=== PATIENT | female | born 1970 | race Caucasian/White ===

== ENCOUNTER 2017-11-07 14:49 | Emergency (ER) | payer OTHER, SELFPAY ==
--- NOTE | 2017-11-07 12:29 | PC.NURSE ---
left upper abdominal pain for one month, evaluated by her primary md yesterday, given rx ranitidine. ems vs 115/75 hr 64 sat 100% ra, 98.1 temp. ekg wnl. denies fever,vomiting, blood in stool, denies injuries. spouse just from suicide.
[2017-11-07 15:15] VITALS: BP 133/66; PULSE 70; RESP 16; TEMP 36.9; O2SAT 100; BMI 20.2
--- NOTE | 2017-11-07 16:01 | PC.NURSE ---
hx of breast cancer 2007 with biteral mastectomy, last chemo 2008 pt developed left upper abdominal pain for one month,non radiating, now worsen. 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
[2017-11-07 16:03] VITALS: BP 111/65; PULSE 63; RESP 16; O2SAT 100
--- NOTE | 2017-11-07 16:13 | PC.NURSE ---
urine requested, ambulate with steady gait.
[2017-11-07 16:19] LABS: Add Manual Diff / Slide Review NO; Basophils Percent Auto 0.4 % (0-2); Eosinophils Percent Auto 1.7 % (2-4); Hematocrit 29.8 % (36-46); Hemoglobin 9.7 g/dL (12.0-16.0); Lymphocytes Percent Auto 26.5 % (25-40); Mean Corpuscular HGB Conc 32.4 % (30-36); Monocytes Percent Auto 6.8 % (3-14); Neutrophils Absolute Auto 2900 /uL (3000-5900); Neutrophils Percent Auto 64.6 % (50-75); Platelet Count 252 X10^3/uL (150-400); Red Blood Cell Count 3.72 X10^6/uL (4.0-5.2); Red Cell Distribution Width 20.5 % (11.6-14.8); White Blood Cell Count 4.5 X10^3/uL (4.5-11.0)
[2017-11-07 16:30] LABS: Alanine Aminotransferase 24 IU/L (9-52); Albumin 4.6 g/dL (3.5-5.0); Albumin Globulin Ratio 1.7 (1.0-2.8); Alkaline Phosphatase 51 U/L (38-126); Aspartate Aminotransferase 21 IU/L (14-36); BUN Creatinine Ratio 22.5 (6-22); Bilirubin Total 0.4 mg/dL (0.2-1.3); Calcium 9.7 mg/dL (8.4-10.2); Estimated Glomerular Filt Rate > 60.0 mL/min (>60); Globulin 2.7 g/dL (1.7-4.1); Glucose 80 mg/dL (70-100); HEMOLYSIS < 15 (0-50); Lipase 81 U/L (23-300); Potassium 3.7 mmol/L (3.4-5.1); Sodium 139 mmol/L (137-145); Total Protein 7.3 g/dL (6.3-8.2)
--- NOTE | 2017-11-07 16:30 | ED.ABDPAIN ---
HPI - Abdominal Pain <MUMTAZ Garcia - Last Filed: 11/07/17 21:32> General Chief Complaint: Abdominal Pain Stated Complaint: left upper abdominal pain Time Seen by Provider: 11/07/17 16:50 History of Present Illness HPI narrative: 47-year-old female with prior history of breast cancer here for complaint of epigastric pain and left upper quadrant pain for the last few weeks. She denies any trauma to the area. She states that the pain is intermittent she states that eating makes it worse at times. Positive p.o. intake last intake was this morning and she was able to keep down. No nausea or vomiting. She denies any urinary symptoms. Last bowel movement was yesterday and was unremarkable. No fevers no chills. She denies any other concerns or complaints Related Data Home Medications Medication Instructions Recorded Confirmed ranitidine HCl 150 mg PO BID 11/07/17 11/07/17 Allergies Allergy/AdvReac Type Severity Reaction Status Date / Time No Known Drug Allergies Allergy Verified 11/07/17 15:20 Review of Systems <MUMTAZ Garcia - Last Filed: 11/07/17 21:32> Constitutional Denies chills, Denies fever(s), Denies lethargy and Denies weakness ENT Ears, Nose, Mouth, and Throat: Denies change in voice, Denies neck pain and Denies sore throat Gastrointestinal Gastrointestinal: Reports abdominal pain Genitourinary Denies hematuria, Denies flank pain, Denies urinary incontinence and Denies urinary urgency Musculoskeletal Denies neck pain Neurologic Denies confusion and Denies weakness Psychiatric Denies anxiety, Denies confusion, Denies depression, Denies homicidal ideation and Denies suicidal ideation Exam <MUMTAZ Garcia - Last Filed: 11/07/17 21:32> Initial Vital Signs Initial Vital Signs: Vital Signs Temperature 98.4 F 11/07/17 15:15 Pulse Rate 70 11/07/17 15:15 Respiratory Rate 16 11/07/17 15:15 Blood Pressure 133/66 H 11/07/17 15:15 Pulse Oximetry 100 11/07/17 15:15 Const General: cooperative and well developed Nutritional Appearance: well nourished Orientation: alert, awake, oriented x3 and not confused HENMT Mouth: oral mucosae normal, oropharynx normal and moist mucous membranes Eyes General: appearance normal, both eyes and all related structures Eyelids: eyelids normal Conjunctivae: conjunctivae normal Sclera: sclerae normal Pupils: PERRL EOM: EOM intact bilaterally Resp Effort & Inspection: normal respiratory effort, able to speak in complete sentences, no respiratory distress and no use of accessory muscles Auscultation: clear to auscultation bilaterally, no rales, no rhonchi and no wheezes Cardio Rate: regular rate Rhythm: regular rhythm Heart Sounds: S1 normal, S2 normal, no click, no gallops, no murmurs and no rubs GI Inspection: normal to inspection Palpation: soft, No hernia, No mass, No pulsatile mass and No tender Auscultation: normal bowel sounds General: No CVA tenderness Skin General: no rashes or lesions noted, No jaundice and No petechiae Neuro General: alert, oriented x3, gait normal and no focal motor deficits Speech: speech normal <Nabeel Boles DO - Last Filed: 11/07/17 22:04> Initial Vital Signs Initial Vital Signs: Vital Signs Temperature 98.4 F 11/07/17 15:15 Pulse Rate 70 11/07/17 15:15 Respiratory Rate 16 11/07/17 15:15 Blood Pressure 133/66 H 11/07/17 15:15 Pulse Oximetry 100 11/07/17 15:15 Course <MUMTAZ Garcia - Last Filed: 11/07/17 21:32> Orders Ordered: ED Orders 11/07/17 16:15 Complete Blood Count AUTO DIFF Stat Comprehensive Metabolic Panel Stat Lipase Stat 11/07/17 16:53 Urine Microscopic Stat 11/07/17 16:57 CT abdomen pelvis w con Stat Discontinued Medications Hydromorphone HCl (Dilaudid) 0.5 mg IV NOW ONE Stop: 11/07/17 18:32 Last Admin: 11/07/17 18:34 Dose: 0.5 mg Sodium Chloride (Normal Saline 0.9%) 1,000 mls @ 150 mls/hr IV CONT TORSTEN Last Infusion: 11/07/17 19:36 Dose: 0 mls/hr Infusion: 11/07/17 18:25 Dose: 150 mls/hr Infusion: 11/07/17 17:57 Dose: 0 mls/hr Admin: 11/07/17 17:17 Dose: 150 mls/hr Vital Signs - 8 hr 05/23/18 15:15 11/07/17 16:03 11/07/17 17:51 Temperature 98.4 F Pulse Rate 70 63 77 Respiratory Rate 16 16 12 Blood Pressure 133/66 H Blood Pressure [Left Arm] 111/65 124/52 H Pulse Oximetry 100 100 100 11/07/17 19:00 Temperature Pulse Rate 56 L Respiratory Rate Blood Pressure Blood Pressure [Left Arm] 124/82 H Pulse Oximetry 100 <Nabeel Boles DO - Last Filed: 11/07/17 22:04> Orders Ordered: ED Orders 11/07/17 16:15 Complete Blood Count AUTO DIFF Stat Comprehensive Metabolic Panel Stat Lipase Stat 11/07/17 16:53 Urine Microscopic Stat 11/07/17 16:57 CT abdomen pelvis w con Stat Discontinued Medications Hydromorphone HCl (Dilaudid) 0.5 mg IV NOW ONE Stop: 11/07/17 18:32 Last Admin: 11/07/17 18:34 Dose: 0.5 mg Sodium Chloride (Normal Saline 0.9%) 1,000 mls @ 150 mls/hr IV CONT TORSTEN Last Infusion: 11/07/17 19:36 Dose: 0 mls/hr Infusion: 11/07/17 18:25 Dose: 150 mls/hr Infusion: 11/07/17 17:57 Dose: 0 mls/hr Admin: 11/07/17 17:17 Dose: 150 mls/hr Vital Signs - 8 hr 11/07/17 15:15 11/07/17 16:03 11/07/17 17:51 Temperature 98.4 F Pulse Rate 70 63 77 Respiratory Rate 16 16 12 Blood Pressure 133/66 H Blood Pressure [Left Arm] 111/65 124/52 H Pulse Oximetry 100 100 100 11/07/17 19:00 Temperature Pulse Rate 56 L Respiratory Rate Blood Pressure Blood Pressure [Left Arm] 124/82 H Pulse Oximetry 100 MDM - Abdominal Pain <MUMTAZ Garcia - Last Filed: 11/07/17 21:32> Lab Data Result diagrams: 11/07/17 16:15 11/07/17 16:15 Lab Results 11/07/17 11/07/17 11/07/17 Range/Units 16:15 16:15 16:53 WBC 4.5 (4.5-11.0) X10^3/uL RBC 3.72 L (4.0-5.2) X10^6/uL Hgb 9.7 L (12.0-16.0) g/dL Hct 29.8 L (36-46) % MCV 80.0 (80-100) fL MCH 26.0 (26-34) PG MCHC 32.4 (30-36) % RDW 20.5 H (11.6-14.8) % Plt Count 252 (150-400) X10^3/uL Neut % (Auto) 64.6 (50-75) % Lymph % (Auto) 26.5 (25-40) % Monroe % (Auto) 6.8 (3-14) % Eos % (Auto) 1.7 L (2-4) % Baso % (Auto) 0.4 (0-2) % Neut # (Auto) 2900 L (3461-7862) /uL RBC Morphology Not Reportable Hypochromasia 1+ H Anisocytosis 1+ H Microcytosis 1+ H Sodium 139 (137-145) mmol/L Potassium 3.7 (3.4-5.1) mmol/L Chloride 101.0 (98-107) mmol/L Carbon Dioxide 25.0 (22-32) mmol/L BUN 18.0 H (7-17) mg/dL Creatinine 0.80 (0.52-1.04) mg/dL Estimated GFR > 60.0 (>60) mL/min BUN/Creatinine Ratio 22.5 H (6-22) Glucose 80 (70-100) mg/dL Calcium 9.7 (8.4-10.2) mg/dL Total Bilirubin 0.4 (0.2-1.3) mg/dL AST 21 (14-36) IU/L ALT 24 (9-52) IU/L Alkaline Phosphatase 51 (38-126) U/L Total Protein 7.3 (6.3-8.2) g/dL Albumin 4.6 (3.5-5.0) g/dL Globulin 2.7 (1.7-4.1) g/dL Albumin/Globulin Ratio 1.7 (1.0-2.8) Lipase 81 (23-300) U/L Urine RBC 1-5/hpf (0-5/HPF) Urine WBC None seen (0-5/HPF) Urine Bacteria None seen (None) Ur Culture Indicated? Cult not indicated Micro UA Comment Not Reportable Imaging Data CT scan - abdomen: Radiologist's impression: PROCEDURE: CT ABDOMEN PELVIS W CON INDICATIONS: Left upper quadrant and epigastric pain TECHNIQUE: After the administration of oral and intravenous contrast, 5 mm thick sections acquired from the diaphragms to the symphysis. 5 mm thick coronal and sagittal reformats were performed. For radiation dose reduction, the following was used: automated exposure control, adjustment of mA and/or kV according to patient size. COMPARISON: None. FINDINGS: Image quality: Excellent. ABDOMEN: Lung bases: Lung bases are clear. Heart size is normal. Solid organs: There is mild focal fatty infiltration within the anterior left hepatic lobe. Small ovoid hypodensity within the left hepatic lobe is too small to characterize but likely represents a cyst. Gallbladder is within normal limits without calcified gallstones. Biliary system is non-dilated. Pancreas enhances normally. Spleen is normal in size and enhancement. No adrenal nodules. Kidneys are normal in size and enhancement, without hydronephrosis. Peritoneum and bowel: There is prominent concentric wall thickening of the pylorus. Mild to moderate fluid and gas distention of the stomach is noted. Small bowel loops are normal in caliber and wall thickness. No evidence of appendicitis. There is colonic diverticulosis without acute diverticulitis. There is suggestion of slight segmental wall thickening in the distal sigmoid colon although this can be due to nondistention. A small amount of free fluid is demonstrated within the pelvis which appears within physiologic limits. No free air. Nodes and vessels: No retroperitoneal or mesenteric adenopathy. Aorta and inferior vena cava are normal in caliber. Miscellaneous: No ventral hernias. PELVIS: Genitourinary: Bladder wall thickness is normal. There is hyperemia of the uterus consistent with physiologic changes. Miscellaneous: No inguinal hernias or adenopathy. Bones: No suspicious bony lesions. No vertebral body compression fractures. IMPRESSION: 1. Symmetric gastric wall thickening in the region of the pylorus of indeterminate clinical significance. There is [id number] gastric distention. Recommend clinical correlation for possible gastric outlet obstruction symptoms. 2. Diverticulosis without acute diverticulitis. Dictated by: Raúl Evans M.D. on 11/07/2017 at 18:33 Approved by: Raúl Evans M.D. on 11/07/2017 at 18:39 MDM Narrative Medical decision making narrative: CBC and Chem panel were obtained and shows anemia otherwise is unremarkable. CT of the abdomen was obtained and shows some swelling around the pyloric region. Patient has not had nausea or vomiting so doubtful is outlet syndrome. Concerned for ulceration. She is prescribed Nexium however patient decided she would rather do [id number] Nexium. She is to follow up with primary care provider in the next few days for further evaluation and treatment. Discussed with patient to have further evaluation such as endoscopy. For any worsening symptoms return to the emergency room. <Nabeel Boles DO - Last Filed: 11/07/17 22:04> Lab Data Lab Results 11/07/17 11/07/17 11/07/17 Range/Units 16:15 16:15 16:53 WBC 4.5 (4.5-11.0) X10^3/uL RBC 3.72 L (4.0-5.2) X10^6/uL Hgb 9.7 L (12.0-16.0) g/dL Hct 29.8 L (36-46) % MCV 80.0 (80-100) fL MCH 26.0 (26-34) PG MCHC 32.4 (30-36) % RDW 20.5 H (11.6-14.8) % Plt Count 252 (150-400) X10^3/uL Neut % (Auto) 64.6 (50-75) % Lymph % (Auto) 26.5 (25-40) % Monroe % (Auto) 6.8 (3-14) % Eos % (Auto) 1.7 L (2-4) % Baso % (Auto) 0.4 (0-2) % Neut # (Auto) 2900 L (3834-0690) /uL RBC Morphology Not Reportable Hypochromasia 1+ H Anisocytosis 1+ H Microcytosis 1+ H Sodium 139 (137-145) mmol/L Potassium 3.7 (3.4-5.1) mmol/L Chloride 101.0 (98-107) mmol/L Carbon Dioxide 25.0 (22-32) mmol/L BUN 18.0 H (7-17) mg/dL Creatinine 0.80 (0.52-1.04) mg/dL Estimated GFR > 60.0 (>60) mL/min BUN/Creatinine Ratio 22.5 H (6-22) Glucose 80 (70-100) mg/dL Calcium 9.7 (8.4-10.2) mg/dL Total Bilirubin 0.4 (0.2-1.3) mg/dL AST 21 (14-36) IU/L ALT 24 (9-52) IU/L Alkaline Phosphatase 51 (38-126) U/L Total Protein 7.3 (6.3-8.2) g/dL Albumin 4.6 (3.5-5.0) g/dL Globulin 2.7 (1.7-4.1) g/dL Albumin/Globulin Ratio 1.7 (1.0-2.8) Lipase 81 (23-300) U/L Urine RBC 1-5/hpf (0-5/HPF) Urine WBC None seen (0-5/HPF) Urine Bacteria None seen (None) Ur Culture Indicated? Cult not indicated Micro UA Comment Not Reportable Discharge Plan Departure Patient Disposition: Home, Self-Care Clinical Impression: Abdominal pain Discharge Date/Time: 11/07/17 19:40 Interventions: ED Discharge Assessment Last Done: 11/07/17 19:39 Instructions: DI for Abdominal Pain-Adult Activity Restrictions/Additional Instructions: Laboratory results show a anemia otherwise were unremarkable. CT of the abdomen showed thickening of the stomach wall around the pyloric sphincter. Concerned this may be due to some ulceration. Use [id number] Nexium to help with any acid follow up with her primary care provider in the next few days for re-evaluation. May need endoscopy for further evaluation. For any worsening symptoms return to the emergency room. Limit NSAID use as this could irritate the gastric lining. Use Tylenol as needed for discomfort. Prescriptions: No Action ranitidine HCl 150 mg 150 mg PO BID RF: 0 Referrals: [facility] [Provider Group] <Nabeel Boles DO - Last Filed: 11/07/17 22:04> Cosign ED Attending Tracy Attestation: I was immediately available in the department for consultation. Documentation has been reviewed. I agree with assessment and plan.
[2017-11-07 16:37] LABS: Anisocytosis 1+; Hypochromasia 1+; Microcytosis 1+
--- NOTE | 2017-11-07 16:57 | DI.CT.S_ITS ---
PROCEDURE: CT ABDOMEN PELVIS W CON INDICATIONS: Left upper quadrant and epigastric pain TECHNIQUE: After the administration of oral and intravenous contrast, 5 mm thick sections acquired from the diaphragms to the symphysis. 5 mm thick coronal and sagittal reformats were performed. For radiation dose reduction, the following was used: automated exposure control, adjustment of mA and/or kV according to patient size. COMPARISON: None. FINDINGS: Image quality: Excellent. ABDOMEN: Lung bases: Lung bases are clear. Heart size is normal. Solid organs: There is mild focal fatty infiltration within the anterior left hepatic lobe. Small ovoid hypodensity within the left hepatic lobe is too small to characterize but likely represents a cyst. Gallbladder is within normal limits without calcified gallstones. Biliary system is non-dilated. Pancreas enhances normally. Spleen is normal in size and enhancement. No adrenal nodules. Kidneys are normal in size and enhancement, without hydronephrosis. Peritoneum and bowel: There is prominent concentric wall thickening of the pylorus. Mild to moderate fluid and gas distention of the stomach is noted. Small bowel loops are normal in caliber and wall thickness. No evidence of appendicitis. There is colonic diverticulosis without acute diverticulitis. There is suggestion of slight segmental wall thickening in the distal sigmoid colon although this can be due to nondistention. A small amount of free fluid is demonstrated within the pelvis which appears within physiologic limits. No free air. Nodes and vessels: No retroperitoneal or mesenteric adenopathy. Aorta and inferior vena cava are normal in caliber. Miscellaneous: No ventral hernias. PELVIS: Genitourinary: Bladder wall thickness is normal. There is hyperemia of the uterus consistent with physiologic changes. Miscellaneous: No inguinal hernias or adenopathy. Bones: No suspicious bony lesions. No vertebral body compression fractures. IMPRESSION: 1. Symmetric gastric wall thickening in the region of the pylorus of indeterminate clinical significance. There is [id number] gastric distention. Recommend clinical correlation for possible gastric outlet obstruction symptoms. 2. Diverticulosis without acute diverticulitis. Dictated by: Raúl Evans M.D. on 11/07/2017 at 18:33 Approved by: Raúl Evans M.D. on 11/07/2017 at 18:39
[2017-11-07 17:01] LABS: Bacteria Urine None Seen; WBC Urine None Seen (0-5/HPF)
[2017-11-07 17:07] LABS: Culture Indicated Urine Cult Not Indicated; RBC Urine 1-5/HPF (0-5/HPF)
[2017-11-07] MEDS: SODIUM CHLORIDE 0.9% 1,000 ML 150 ML IV (17:17)
[2017-11-07 17:51] VITALS: BP 124/52; PULSE 77; RESP 12; O2SAT 100
--- NOTE | 2017-11-07 18:25 | PC.NURSE ---
pt requesting medication, for increasing pain left upper abd. 10/25
[2017-11-07] MEDS: HYDROMORPHONE 0.5 MG INJ IV (18:34)
--- NOTE | 2017-11-07 18:58 | PC.NURSE ---
pts mother repeatedly stating they have to catch the ferry back to [place]. requesting copy of lab works.
[2017-11-07 19:00] VITALS: BP 124/82; PULSE 56; O2SAT 100
== END 2017-11-07 19:40 | disposition home or self-care (01) ==
PROVIDERS: Emergency Provider Nurse Practitioner Family; Family Provider Nurse Practitioner Family
DX: R10.9 Unspecified abdominal pain (principal)
CPT/HCPCS: 36591; 74177; 80053; 81003; 81015; 83690; 85025; 96361; 96374; 99284; J1170; Q9967

== ENCOUNTER → 2018-10-29 09:16 | Outpatient (CLI) | payer OTHER, SELFPAY ==
--- NOTE | 2018-10-29 | DI.US.S_ITS ---
PROCEDURE: US PELVIC COMPLETE INDICATIONS: ENLARGED UTERUS TECHNIQUE: Real-time scanning was performed of the pelvic organs, with image documentation. Additional endovaginal scanning was necessary due to incomplete visualization of the adnexal and endometrial structures by transabdominal scanning. COMPARISON: [facility], US, PELVIC COMPLETE, 07/12/2010, 10:10. [facility], CT, CT ABDOMEN PELVIS W CON, 11/07/2017, 17:51. [facility], US, PELVIC COMPLETE, 05/25/2016, 9:58. FINDINGS: Transabdominal scanning: Limited scanning through the kidneys shows no hydronephrosis. No pathologic free abdominal or pelvic fluid. Endovaginal scanning: Uterus: Uterus is normal in size at 11.8 x 4.9 x 7.1 cm. The endometrium measures 6 mm in combined thickness. Multiple echogenic foci are again seen along the cervix, which is similar to 2016. Ovaries: The right ovary measures 2.8 x 1.4 x 1.9 cm. The left ovary measures 2.9 x 1.6 x 1.6 cm. The ovaries have a normal sonographic appearance. No adnexal masses are seen. IMPRESSION: Prominent uterus again observed, without masses. Multiple stable echogenic foci can be seen along the cervix. Differential diagnosis includes calcification. Dictated by: Dev Quinonez M.D. on 10/29/2018 at 9:55 Approved by: Dev Quinonez M.D. on 10/29/2018 at 9:57
== END ==
PROVIDERS: PCP Family Medicine; Visit Provider Family Medicine
DX: N85.2 Hypertrophy of uterus (principal)
CPT/HCPCS: 76830; 76856

== ENCOUNTER → 2020-09-02 12:22 | Outpatient (CLI) | payer OTHER, SELFPAY ==
[2020-09-02] MEDS: COVID-19 VACC #1, MRNA(MOD) 100 MCG/0.5 ML VIAL IM (12:29)
== END ==
PROVIDERS: PCP Family Medicine; Visit Provider Internal Medicine
DX: Z23 Encounter for immunization (principal)
CPT/HCPCS: 0011A; 91301

== ENCOUNTER → 2020-09-30 09:57 | Outpatient (CLI) | payer OTHER, SELFPAY ==
[2020-09-30] MEDS: COVID-19 VACC #2, MRNA(MOD) 100 MCG/0.5 ML VIAL IM (10:03)
== END ==
PROVIDERS: PCP Family Medicine; Visit Provider Internal Medicine
DX: Z23 Encounter for immunization (principal)
CPT/HCPCS: 0012A; 91301

== ENCOUNTER → 2020-12-08 09:20 | Outpatient (CLI) | payer OTHER, SELFPAY ==
[2020-12-08 10:15] LABS: COVID19 -Nasal RAPID Negative (Negative)
== END ==
PROVIDERS: PCP Family Medicine; Visit Provider Physician Assistant
DX: Z01.812 Encounter for preprocedural laboratory examination (principal); Z20.822 Contact with and (suspected) exposure to COVID-19
CPT/HCPCS: 87635

== ENCOUNTER → 2021-03-03 09:57 | Outpatient (CLI) | payer OTHER, SELFPAY ==
[2021-03-03 19:38] LABS: Add Manual Diff / Slide Review NO; Basophils Absolute Auto 0 /uL (0-100); Basophils Percent Auto 0.5 % (0-2); Eosinophils Absolute Auto 100 /uL (0-450); Eosinophils Percent Auto 2.8 % (2-4); Hematocrit 39.5 % (36-46); Lymphocytes Absolute Auto 1400 /uL (1100-4500); Lymphocytes Percent Auto 31.8 % (25-40); Mean Corpuscular HGB Conc 32.8 % (30-36); Mean Corpuscular Volume 97.5 fL (80-100); Monocytes Absolute Auto 300 /uL (0-900); Monocytes Percent Auto 7.1 % (3-14); Neutrophils Absolute Auto 2500 /uL (1500-7000); Neutrophils Percent Auto 57.8 % (50-75); Platelet Count 241 X10^3/uL (150-400); Red Blood Cell Count 4.06 X10^6/uL (4.0-5.2); Red Cell Distribution Width 13.5 % (11.6-14.8); White Blood Cell Count 4.4 X10^3/uL (4.5-11.0)
[2021-03-03 19:41] LABS: HEMOLYSIS < 15 (0-50); Iron 138 ug/dL (37-170)
[2021-03-03 19:57] LABS: Percent Iron Saturation 46 % (15-50); Total Iron Binding Capacity 297 ug/dL (265-497); Transferrin 253 mg/dL (206-381)
[2021-03-03 19:59] LABS: Vitamin D 25 Hydroxy (D3) 41.6 ng/mL (30.0-100.0)
== END ==
PROVIDERS: PCP Family Medicine; Visit Provider Family Medicine
DX: D50.8 Other iron deficiency anemias (principal); D50.0 Iron deficiency anemia secondary to blood loss (chronic); D64.9 Anemia, unspecified
CPT/HCPCS: 82306; 83540; 83550; 85025

== ENCOUNTER → 2021-07-30 12:31 | Outpatient (CLI) | payer OTHER, SELFPAY ==
--- NOTE | 2021-07-30 | DI.MRI.S_ITS ---
PROCEDURE: MR HEAD/BRAIN WO CON INDICATIONS: 51-year-old female with unspecified tremor TECHNIQUE: Noncontrast axial T1 spin echo, axial T2 fast spin echo, sagittal and axial FLAIR, coronal T2 fast spin echo, axial gradient echo, axial diffusion and ADC through the brain. COMPARISON: None. FINDINGS: Cerebrum, Cerebellum and Brainstem: The diffusion sequence is normal without evidence of acute infarct. No intracranial hemorrhage, mass lesion or midline shift. There is a normal cerebral and cerebellar volume present given patient's age. White matter is unremarkable no other than solitary periventricular white matter hyperintensity on the left.. Basal cisterns and foramen magnum contain appropriate anatomy and vascular flow voids. No evidence of dural or leptomeningeal thickening. Ventricles: Appropriate in size and position. No hydrocephalus. Skull Base: The bony sella, pituitary gland and infundibulum are unremarkable. Clivus and craniovertebral relationships are appropriate. Visualized portions of the seventh and eighth cranial nerve complexes and internal auditory canals are within normal limits. Scalp and Calvarium: The scalp is unremarkable. Underlying calvarium has an appropriate marrow signal. Paranasal Sinuses: Visualized sinuses are clear. Mastoids: Unremarkable as visualized. No mastoid effusion present. Orbits: The orbits, globes and ocular muscles are unremarkable. IMPRESSION: Mild atrophy and trace white matter chronic ischemic change without acute hemorrhage, infarct or mass lesion. Approved by: River Williamson M.D. on 07/31/2021 at 8:21
== END ==
PROVIDERS: PCP Family Medicine; Referring Provider Family Medicine; Visit Provider Family Medicine
DX: R25.1 Tremor, unspecified (principal)
CPT/HCPCS: 70551

== ENCOUNTER → 2021-09-06 06:56 | Outpatient (CLI) | payer OTHER, SELFPAY ==
[2021-09-06 08:15] LABS: Add Manual Diff / Slide Review NO; Basophils Absolute Auto 0 /uL (0-100); Basophils Percent Auto 0.1 % (0-2); Eosinophils Absolute Auto 200 /uL (0-450); Eosinophils Percent Auto 4.5 % (2-4); Hematocrit 36.6 % (36-46); Hemoglobin 12.6 g/dL (12.0-16.0); Lymphocytes Absolute Auto 1300 /uL (1100-4500); Lymphocytes Percent Auto 36.7 % (25-40); Mean Corpuscular HGB Conc 34.5 % (30-36); Mean Corpuscular Hemoglobin 33.2 PG (26-34); Mean Corpuscular Volume 96.4 fL (80-100); Monocytes Absolute Auto 300 /uL (0-900); Monocytes Percent Auto 7.7 % (3-14); Neutrophils Absolute Auto 1900 /uL (1500-7000); Platelet Count 210 X10^3/uL (150-400); Red Cell Distribution Width 13.3 % (11.6-14.8); White Blood Cell Count 3.7 X10^3/uL (4.5-11.0)
[2021-09-06 08:25] LABS: Alanine Aminotransferase 13 IU/L (<35); Albumin 4.6 g/dL (3.5-5.0); Alkaline Phosphatase 55 U/L (38-126); Aspartate Aminotransferase 20 IU/L (14-36); BUN Creatinine Ratio 20.8 (6-22); Bilirubin Total 0.4 mg/dL (0.2-1.3); Blood Urea Nitrogen 16 mg/dL (7-17); Calcium 9.5 mg/dL (8.4-10.2); Carbon Dioxide 26 mmol/L (22-32); Chloride 106 mmol/L (98-107); Estimated Glomerular Filt Rate > 60.0 mL/min (>60); Globulin 2.3 g/dL (1.7-4.1); Glucose 89 mg/dL (70-100); HEMOLYSIS < 15 (0-50); Potassium 4.3 mmol/L (3.4-5.1); Sodium 139 mmol/L (137-145); Total Protein 6.9 g/dL (6.3-8.2)
[2021-09-06 08:55] LABS: Thyroid Stimulating Hormone 3.46 uIU/mL (0.47-4.68)
[2021-09-06 09:31] LABS: Folate 19.6 ng/mL (2.76-20.0); Vitamin B12 821 pg/mL (239-931)
== END ==
PROVIDERS: PCP Family Medicine; Referring Provider Family Medicine; Visit Provider Family Medicine
DX: R25.1 Tremor, unspecified (principal); Z13.220 Encounter for screening for lipoid disorders
CPT/HCPCS: 36415; 80053; 82607; 82746; 83655; 83735; 84443; 85025

== ENCOUNTER 2022-09-27 20:49 | Emergency (ER) | payer OTHER, SELFPAY ==
[2022-09-27 20:55] VITALS: BP 128/60; PULSE 80; RESP 20; TEMP 37.5; O2SAT 98; BMI 20.5
[2022-09-27 23:03] LABS: Add Manual Diff / Slide Review NO; Basophils Absolute Auto 0 /uL (0-100); Basophils Percent Auto 0.3 % (0-2); Eosinophils Absolute Auto 0 /uL (0-450); Eosinophils Percent Auto 1.7 % (2-4); Hematocrit 36.4 % (36-46); Hemoglobin 12.4 g/dL (12.0-16.0); Lymphocytes Absolute Auto 800 /uL (1100-4500); Lymphocytes Percent Auto 27.5 % (25-40); Mean Corpuscular HGB Conc 34.1 % (30-36); Mean Corpuscular Hemoglobin 32.5 PG (26-34); Mean Corpuscular Volume 95.3 fL (80-100); Monocytes Absolute Auto 500 /uL (0-900); Monocytes Percent Auto 17.8 % (3-14); Neutrophils Absolute Auto 1600 /uL (1500-7000); Neutrophils Percent Auto 52.7 % (50-75); Platelet Count 183 X10^3/uL (150-400); Red Blood Cell Count 3.82 X10^6/uL (4.0-5.2)
[2022-09-27 23:12] LABS: Alanine Aminotransferase 24 IU/L (<35); Albumin 4.2 g/dL (3.5-5.0); Albumin Globulin Ratio 1.3 (1.0-2.8); Alkaline Phosphatase 57 U/L (38-126); Aspartate Aminotransferase 24 IU/L (14-36); BUN Creatinine Ratio 15.7 (6-22); Bilirubin Total 0.3 mg/dL (0.2-1.3); Blood Urea Nitrogen 11 mg/dL (7-17); Calcium 9.4 mg/dL (8.4-10.2); Carbon Dioxide 31 mmol/L (22-32); Chloride 94 mmol/L (98-107); Estimated Glomerular Filt Rate > 60 mL/min (>60); Globulin 3.3 g/dL (1.7-4.1); Glucose 102 mg/dL (70-100); HEMOLYSIS < 15 (0-50); Lipase 52 U/L (23-300); Potassium 3.6 mmol/L (3.4-5.1); Sodium 132 mmol/L (137-145); Total Protein 7.5 g/dL (6.3-8.2)
[2022-09-28 00:25] LABS: Appearance Urine UA CLEAR; Bilirubin Urine UA NEGATIVE (NEGATIVE); Color Urine UA YELLOW; Glucose Urine UA NEGATIVE (Negative); Ketones Urine UA TRACE (NEGATIVE); Leukocyte Esterase Urine UA NEGATIVE (NEGATIVE); Nitrite Urine UA NEGATIVE (Negative); Occult Blood Urine UA 3+ (Negative); Protein Urine UA 1+ (Negative); Urobilinogen Urine UA 0.2 E.U./dL (0.2)
[2022-09-28 00:27] VITALS: BP 110/59; PULSE 58; O2SAT 98
[2022-09-28 00:45] LABS: Squamous Epithelial Cell Urine 1-5 /HPF (0-5/HPF); WBC Urine None Seen (0-5/HPF)
[2022-09-28 00:46] LABS: Bacteria Urine Few (2-10); Culture Indicated Urine Cult Not Indicated; Mucus Urine 3+ (Negative); RBC Urine 5-10/HPF (0-5/HPF)
--- NOTE | 2022-09-28 02:06 | ED.ABDPAIN ---
HPI - Abdominal Pain General Chief Complaint: Abdominal Pain Stated Complaint: abd pain, covid + Time Seen by Provider: 09/28/22 02:05 Source: patient Mode of arrival: Ambulatory Limitations: no limitations History of Present Illness HPI narrative: This is a 52-year-old female with history of breast cancer, bilateral mastectomy completed her treatment including tamoxifen over 5 years ago and recent COVID infection who presents with complaint epigastric right upper quadrant abdominal pain. Patient states she started having COVID symptoms last Sunday she had fatigue followed by muscle aches and then upper respiratory nasal congestion. She tested positive she states she is actually been on the upswing. She started Paxil COVID yesterday had 1 dose and afterwards developed some upper abdominal discomfort in the epigastric right upper quadrant region. Patient states she is had subjective fevers, no chest pain, no shortness of breath. She denies any nausea or vomiting she has been having some diarrhea 2 or 3 times daily that has been watery, no black or bloody stools since onset of symptoms of COVID. No dysuria, urgency frequency, no back or flank pain. Patient denies any vaginal bleeding or discharge. She did try Pepto-Bismol which was a little bit helpful, some Gas-X which was not. Patient states she is had bilateral mastectomy denies any other surgeries. No tobacco, 5 alcoholic drinks weekly, no illicit. No known drug allergies. Related Data Previous Rx's Medication Instructions Recorded tretinoin 0.1 % topical cream 1 applic topical BEDTIME #45 grams 04/14/21 (Retin-A) hydrocodone 5 mg-acetaminophen 325 1 tab PO Q6H PRN pain #10 tabs 09/28/22 mg tablet Allergies Allergy/AdvReac Type Severity Reaction Status Date / Time No Known Drug Allergies Allergy Verified 09/27/22 21:01 Review of Systems Review of Systems ROS Unobtainable: All systems reviewed & are unremarkable except as noted in HPI and below Patient History Medical History Breast cancer (~2007) Cervical high risk human papillomavirus (HPV) DNA test positive Encounter for hepatitis C screening test for low risk patient Food sensitivity with gastrointestinal symptoms Hearing loss of right ear due to cerumen impaction History of breast cancer History of right breast cancer History of vitamin D deficiency Screening for cervical cancer Serrated polyposis syndrome Surgical History History of total mastectomy S/P bilateral mastectomy (~2007) Family History Mother Breast cancer Grandmother Breast cancer Esophageal cancer Grandfather Lung cancer Father CAD (coronary artery disease) Social History Smoking Status: Former smoker Smoking Status: Former smoker alcohol intake frequency: a few times a week Substance Use Type: does not use Exam Narrative Exam Narrative: GENERAL: Alert and oriented x three, well-nourished female in mild distress HEENT: Head normocephalic, atraumatic, EOMI, pupils reactive, face symmetric, moist mucous membranes NECK: Supple, full range of motion CARDIOVASCULAR: Regular rate and rhythm without murmurs, rubs or gallops. RESPIRATORY: Breath sounds equal bilaterally, no wheezes rales or rhonchi. ABDOMEN: Soft, nontender on exam. Normoactive bowel sounds all 4 quadrants. No guarding or rebound, rigidity, no mass : No CVA tenderness EXTREMITIES: Normal range of motion, no clubbing or edema. Neurovascularly intact NEUROLOGICAL: Cranial nerves II through XII grossly intact. Moving all extremities SKIN: Warm, dry, no petechiae, no rashes or lesions. Initial Vital Signs Initial Vital Signs: Vital Signs Temperature 99.5 F 09/27/22 20:55 Pulse Rate 80 09/27/22 20:55 Respiratory Rate 20 09/27/22 20:55 Blood Pressure 128/60 09/27/22 20:55 Pulse Oximetry 98 09/27/22 20:55 Oxygen Delivery Method Room Air 09/27/22 20:55 Course Orders Ordered: Discontinued Medications Hydrocodone Bitart/Acetaminophen (Hydrocodone/Acet 5/325 Prepack) 1 bottle MISC SEEINSTR ONE Stop: 09/28/22 02:56 Last Admin: 09/28/22 03:26 Dose: 1 bottle Documented By: SHERLYN Al Hydrox/Mg Hydrox/Simethicone 20 ml/ Lidocaine HCl 15 ml 0 ml PO NOW ONE Stop: 09/28/22 02:23 Last Admin: 09/28/22 02:30 Dose: 35 ml Documented By: SHERLYN Ondansetron HCl (Ondansetron 4 Mg Odt) 4 mg PO NOW PRN PRN Reason: Nausea And Vomiting Ondansetron HCl (Ondansetron 4 Mg/2 Ml Inj) 4 mg IV NOW PRN PRN Reason: Nausea And Vomiting Vital Signs Vital signs: Vital Signs - 8 hr 09/27/22 20:55 09/28/22 00:27 Temperature 99.5 F Pulse Rate 80 58 L Respiratory Rate 20 Blood Pressure 128/60 110/59 L Pulse Oximetry 98 98 Oxygen Delivery Method Room Air Room Air MDM - Abdominal Pain Lab Data 09/27/22 10:52 09/27/22 10:52 Labs: Lab Results 09/27/22 09/27/22 09/27/22 Range/Units 10:52 10:52 23:57 WBC 3.0 L (4.5-11.0) X10^3/uL RBC 3.82 L (4.0-5.2) X10^6/uL Hgb 12.4 (12.0-16.0) g/dL Hct 36.4 (36-46) % MCV 95.3 (80-100) fL MCH 32.5 (26-34) PG MCHC 34.1 (30-36) % RDW 13.0 (11.6-14.8) % Plt Count 183 (150-400) X10^3/uL Neut % (Auto) 52.7 (50-75) % Lymph % (Auto) 27.5 (25-40) % [place] % (Auto) 17.8 H (3-14) % Eos % (Auto) 1.7 L (2-4) % Baso % (Auto) 0.3 (0-2) % Neut # (Auto) 1600 (6115-4748) /uL Lymph # (Auto) 800 L (1424-1899) /uL [place] # (Auto) 500 (0-900) /uL Eos # (Auto) 0 (0-450) /uL Baso # (Auto) 0 (0-100) /uL Sodium 132 L (137-145) mmol/L Potassium 3.6 (3.4-5.1) mmol/L Chloride 94 L (98-107) mmol/L Carbon Dioxide 31 (22-32) mmol/L BUN 11 (7-17) mg/dL Creatinine 0.70 (0.52-1.04) mg/dL Estimated GFR > 60 (>60) mL/min BUN/Creatinine Ratio 15.7 (6-22) Glucose 102 H (70-100) mg/dL Calcium 9.4 (8.4-10.2) mg/dL Total Bilirubin 0.3 (0.2-1.3) mg/dL AST 24 (14-36) IU/L ALT 24 (<35) IU/L Alkaline Phosphatase 57 (38-126) U/L Total Protein 7.5 (6.3-8.2) g/dL Albumin 4.2 (3.5-5.0) g/dL Globulin 3.3 (1.7-4.1) g/dL Albumin/Globulin Ratio 1.3 (1.0-2.8) Lipase 52 (23-300) U/L Urine Color Yellow Urine Appearance Clear Urine pH 6.0 (4.5-8.0) Ur Specific [place] 1.020 (1.000-1.035) Urine Protein 1+ H (Negative) Urine Glucose (UA) Negative (Negative) g/dL Urine Ketones Trace H (NEGATIVE) Urine Occult Blood 3+ H (Negative) Urine Nitrate Negative (Negative) Urine Bilirubin Negative (NEGATIVE) Urine Urobilinogen 0.2 (0.2) E.U./dL Ur Leukocyte Esterase Negative (NEGATIVE) Urine RBC 5-10/hpf H (0-5/HPF) Urine WBC None seen (0-5/HPF) Ur Squamous Epith Cells 1-5 /hpf (0-5/HPF) Urine Bacteria Few (2-10) H (None) Urine Mucus 3+ H (Negative) Ur Culture Indicated? Cult not indicated Point of care testing: Point of Care Testing Test Results Negative Urine Dip Bedside Urine Glucose Negative Bedside Urine Bilirubin - Negative Bedside Urine Ketone +/- 5 Urine Specific [place] 1.025 Bedside Urine Occult Blood +++ Bedside Urine pH 6.0 Bedside Urine Protein + 30 Bedside Urine Urobilinogen - Negative Bedside Urine Nitrite - Negative Bedside Urine Leukocytes - Negative Esterase MDM Narrative Medical decision making narrative: This is a 52-year-old female with epigastric right upper quadrant pain that is not reproducible on exam who is had a recent COVID infection tested as an outpatient states she is been improving started PACs little bit and after 1 dose developed some epigastric right upper quadrant discomfort. Patient has tried some Pepto-Bismol which has been helpful, Gas-X which has not. Labs show white count of 3, elevated monocytes, low lymphs. Sodium is 132 potassium is 3 6 with a chloride 94 normal renal function, glucose is 102 with negative bilirubin and LFTs and negative lipase. Urine shows some protein, trace ketones, 3+ blood with 5-10 RBCs, few bacteria. Patient's abdominal exam is overall benign she states pain is still present but I do not worsened with palpation making my suspicion for acute intra-abdominal process much lower. Patient does not have any respiratory symptoms, vitals here appropriate. She does notice she is had decreased appetite and little bit of worsening with food. Patient was given GI cocktail she would minimal improvement. Discussed further imaging. Patient is not particularly tender in anyone area, CT might give some additional illumination. Patient defers we discussed if she is developing fevers worsening abdominal pain or other changes she needs to return for further evaluation. We will give short course of pain medication with prescription. Urine does show some hematuria, patient does not have any flank or lower abdominal symptoms discussed with patient will send for culture if this is negative she needs follow-up to have her urine rechecked and potentially evaluated by urology for hematuria if persisting. Patient and I did discuss this and she expresses understanding. Discharge Plan Departure Patient Disposition: Home Clinical Impression: Abdominal pain, Hematuria Instructions: DI for Abdominal Pain-Adult Activity Restrictions/Additional Instructions: Please follow-up for recheck. Your urine sample did show signs of hematuria, there maybe an infection it was sent for culture if this is negative I would recommend follow up for repeat UA to make sure hematuria is resolved and if and as not any to follow up with Urology for further evaluation. You may take 1-2 tablets of [place] every 6 hours as needed. This medication can make you sleepy do not drive, perform hazardous activities or make any major decisions while taking it. This medication will make you constipated please take a stool softener once to twice daily until stools are soft and regular. Prescription sent to [facility] in [place]. Please return for fevers, rapidly worsening abdominal, back or flank pain, persistent vomiting, black or bloody stools, lightheadedness or passing, new chest pain or shortness of breath or other new or concerning changes Prescriptions: New hydrocodone-acetaminophen 5-325 mg tablet 1 tab PO Q6H PRN (Reason: pain) Qty: 10 0RF No Action tretinoin [Retin-A] 0.1 % cream 1 applic topical BEDTIME Qty: 45 2RF Referrals: Devora Villa MD [Primary Care Provider] - Stand Alone Forms: Patient Portal/API
[2022-09-28] MEDS: MAG HYDROX/ALUMINUM/SIMETH SUS 20 ML, LIDOCAINE VISCOUS 2% 15 ML PO (02:30)
[2022-09-28] MEDS: HYDROCODONE/ACET 5/325 PREPACK 1 BOTTLE MISC (03:26)
[2022-09-28 03:27] VITALS: BP 118/66; PULSE 70; RESP 14; TEMP 36.4; O2SAT 98
== END 2022-09-28 03:29 | disposition home or self-care (01) ==
PROVIDERS: Emergency Provider Emergency Medicine; PCP Family Medicine
DX: R10.11 Right upper quadrant pain (principal); R31.9 Hematuria, unspecified
CPT/HCPCS: 36415; 80053; 81001; 81003; 81025; 83690; 85025; 99283; 99284

== ENCOUNTER → 2022-11-15 14:58 | Outpatient (CLI) | payer OTHER, SELFPAY ==
[2022-11-15 15:43] LABS: Estimated Glomerular Filt Rate > 60 mL/min (>60)
== END ==
PROVIDERS: PCP Family Medicine; Referring Provider Urology; Visit Provider Urology
DX: Z87.448 Personal history of other diseases of urinary system (principal)
CPT/HCPCS: 36415; 82565

== ENCOUNTER → 2023-01-30 09:28 | Outpatient (CLI) | payer OTHER, SELFPAY ==
[2023-01-30 10:37] LABS: BUN Creatinine Ratio 21.7 (6-22); Blood Urea Nitrogen 15 mg/dL (7-17); Calcium 9.4 mg/dL (8.4-10.2); Carbon Dioxide 31 mmol/L (22-32); Chloride 101 mmol/L (98-107); Estimated Glomerular Filt Rate > 60 mL/min (>60); Glucose 91 mg/dL (70-100); HEMOLYSIS < 15 (0-50); Potassium 3.8 mmol/L (3.4-5.1); Sodium 136 mmol/L (137-145)
[2023-01-30 11:09] LABS: Appearance Urine UA CLEAR; Bilirubin Urine UA NEGATIVE (NEGATIVE); Color Urine UA YELLOW; Glucose Urine UA NEGATIVE (Negative); Ketones Urine UA NEGATIVE (NEGATIVE); Leukocyte Esterase Urine UA NEGATIVE (NEGATIVE); Nitrite Urine UA NEGATIVE (Negative); Occult Blood Urine UA 1+ (Negative); Protein Urine UA NEGATIVE (Negative); Specific Gravity Urine UA <=1.005 (1.000-1.035); Urobilinogen Urine UA 0.2 E.U./dL (0.2)
[2023-01-30 11:24] LABS: Bacteria Urine None Seen; Culture Indicated Urine Cult Not Indicated; RBC Urine 1-5/HPF (0-5/HPF); Squamous Epithelial Cell Urine 1-5 /HPF (0-5/HPF); WBC Urine None Seen (0-5/HPF)
== END ==
PROVIDERS: PCP Family Medicine; Referring Provider Family Medicine; Visit Provider Family Medicine
DX: R10.9 Unspecified abdominal pain (principal)
CPT/HCPCS: 36415; 80048; 81001

== ENCOUNTER → 2023-03-29 12:16 | Outpatient (CLI) | payer OTHER, SELFPAY ==
[2023-03-29 13:07] LABS: Appearance Urine UA CLEAR; Bilirubin Urine UA NEGATIVE (NEGATIVE); Color Urine UA YELLOW; Glucose Urine UA NEGATIVE (Negative); Ketones Urine UA NEGATIVE (NEGATIVE); Leukocyte Esterase Urine UA NEGATIVE (NEGATIVE); Nitrite Urine UA NEGATIVE (Negative); Occult Blood Urine UA 2+ (Negative); Protein Urine UA NEGATIVE (Negative); Specific Gravity Urine UA 1.015 (1.000-1.035); Urobilinogen Urine UA 0.2 E.U./dL (0.2)
[2023-03-29 13:14] LABS: pH Urine UA 5.5 (4.5-8.0)
[2023-03-29 13:15] LABS: Bacteria Urine Occasional (0-1); Mucus Urine 1+ (Negative); RBC Urine 5-10/HPF (0-5/HPF); Squamous Epithelial Cell Urine 1-5 /HPF (0-5/HPF); WBC Urine 1-5/HPF (0-5/HPF)
== END ==
PROVIDERS: PCP Family Medicine; Referring Provider Family Medicine; Visit Provider Family Medicine
DX: R30.0 Dysuria (principal)
CPT/HCPCS: 81001; 87086

== ENCOUNTER → 2023-04-18 15:44 | Outpatient (CLI) | payer OTHER, SELFPAY ==
--- NOTE | 2023-04-18 | DI.US.S_ITS ---
PROCEDURE: US RENAL COMPLETE INDICATIONS: LEFT FLANK PAIN TECHNIQUE: Real-time scanning was performed of the kidneys and bladder, with image documentation. COMPARISON: None. FINDINGS: Kidneys: Kidneys are normal in size. Right kidney measures 10.3 cm long; left kidney measures 10.5 cm long. Right renal cortical thickness is 1.2 cm; left renal cortical thickness is 1.2 cm. Renal cortical echotexture is normal. No hydronephrosis or nephrolithiasis. No suspicious solid mass lesions. Bladder: Pre-void bladder volume is 316 mL. Post-void residual is 17 mL. Pre-void images demonstrate no intraluminal masses or stones. On pre-void images, bilateral ureteral jets are noted with color Doppler interrogation. (Of note, ureteral jets may not be detectable in up to 25% of cases due to insufficient differences in specific gravity between ureteral and bladder urine). Miscellaneous: No free pelvic fluid. IMPRESSION: Mild postvoid residual. No hydronephrosis or nephrolithiasis. Dictated by: Carolee Chao M.D. on 04/18/2023 at 17:38 Approved by: Carolee Chao M.D. on 04/18/2023 at 17:39
== END ==
PROVIDERS: PCP Family Medicine; Referring Provider Family Medicine; Visit Provider Family Medicine
DX: R10.9 Unspecified abdominal pain (principal)
CPT/HCPCS: 76770

== ENCOUNTER → 2023-05-23 08:52 | Outpatient (CLI) | payer OTHER, SELFPAY ==
[2023-05-23 09:59] LABS: Add Manual Diff / Slide Review NO; Basophils Absolute Auto 0 /uL (0-100); Basophils Percent Auto 0.1 % (0-2); Eosinophils Absolute Auto 100 /uL (0-450); Eosinophils Percent Auto 3.6 % (2-4); Hemoglobin 12.8 g/dL (12.0-16.0); Lymphocytes Absolute Auto 1100 /uL (1100-4500); Lymphocytes Percent Auto 33.3 % (25-40); Mean Corpuscular HGB Conc 34.7 % (30-36); Mean Corpuscular Hemoglobin 33.8 PG (26-34); Mean Corpuscular Volume 97.3 fL (80-100); Monocytes Absolute Auto 200 /uL (0-900); Monocytes Percent Auto 6.8 % (3-14); Neutrophils Absolute Auto 1900 /uL (1500-7000); Neutrophils Percent Auto 56.2 % (50-75); Platelet Count 238 X10^3/uL (150-400); White Blood Cell Count 3.4 X10^3/uL (4.5-11.0)
[2023-05-23 10:02] LABS: Alanine Aminotransferase 20 IU/L (<35); Albumin 4.3 g/dL (3.5-5.0); Albumin Globulin Ratio 1.4 (1.0-2.8); Alkaline Phosphatase 53 U/L (38-126); Aspartate Aminotransferase 24 IU/L (14-36); BUN Creatinine Ratio 30.4 (6-22); Bilirubin Total 0.6 mg/dL (0.2-1.3); Blood Urea Nitrogen 21 mg/dL (7-17); Calcium 9.6 mg/dL (8.4-10.2); Carbon Dioxide 29 mmol/L (22-32); Chloride 105 mmol/L (98-107); Cholesterol 240 mg/dL (140-199); Estimated Glomerular Filt Rate > 60 mL/min (>60); Glucose 86 mg/dL (70-100); HDL Cholesterol 92 mg/dL (40-60); HEMOLYSIS < 15 (0-50); LDL Cholesterol Calculated 139 mg/dL (<100); Lipase 60 U/L (23-300); Potassium 3.9 mmol/L (3.4-5.1); Sodium 139 mmol/L (137-145); Total Protein 7.3 g/dL (6.3-8.2); Triglycerides 43 mg/dL (35-150)
[2023-05-23 10:33] LABS: Vitamin D 25 Hydroxy (D3) 36.6 ng/mL (30.0-100.0)
[2023-05-23 11:07] LABS: Folate 13.6 ng/mL (2.76-20.0); Vitamin B12 433 pg/mL (239-931)
[2023-05-24 05:18] LABS: Apolipoprotein B 96 mg/dL (<90)
[2023-05-25 03:36] LABS: Lipoprotein (a) 146.3 nmol/L (<75.0)
== END ==
PROVIDERS: PCP Family Medicine; Referring Provider Family Medicine; Visit Provider Family Medicine
DX: Z13.6 Encounter for screening for cardiovascular disorders (principal); R10.12 Left upper quadrant pain; R53.83 Other fatigue
CPT/HCPCS: 36415; 80053; 80061; 82172; 82306; 82607; 82746; 83690; 83695; 85025

== ENCOUNTER → 2023-08-08 15:53 | Outpatient (CLI) | payer OTHER, SELFPAY ==
--- NOTE | 2023-08-08 | DI.RAD.S_ITS ---
PROCEDURE: XR CHEST 2V INDICATIONS: DYSPNEA ON EXERTION TECHNIQUE: 2 views of the chest were acquired. COMPARISON: None. FINDINGS: Surgical changes and devices: Surgical clips overlying the left chest wall. Lungs and pleura: Lungs are clear. No pleural effusions or pneumothorax. Mediastinum: Mediastinal contours are normal. Heart size is normal. Bones and chest wall: No suspicious bony abnormalities. Soft tissues appear unremarkable. IMPRESSION: No acute cardiopulmonary abnormality is seen. Dictated by: Honorio Amaral M.D. on 08/08/2023 at 16:17 Approved by: Honorio Amaral M.D. on 08/08/2023 at 16:17
== END ==
PROVIDERS: PCP Family Medicine; Referring Provider Family Medicine; Visit Provider Family Medicine
DX: R06.09 Other forms of dyspnea (principal)
CPT/HCPCS: 71046

== ENCOUNTER → 2024-05-20 13:47 | Outpatient (CLI) | payer OTHER, SELFPAY ==
[2024-05-22 19:07] LABS: Anti Thyroglobulin Antibody 2.4 IU/mL (0.0-0.9); Thyroid Peroxidase Antibodies 597 IU/mL (0-34)
[2024-05-23 22:07] LABS: Deamidated Gliadin Ab IgA 2 units (0-19); Deamidated Gliadin Ab IgG 2 units (0-19); Immunoglobulin A,Qn 96 mg/dL (87-352); t-Transglutaminase IgA <2 U/mL (0-3)
== END ==
PROVIDERS: PCP Family Medicine; Referring Provider Family Medicine; Visit Provider Family Medicine
DX: E55.9 Vitamin D deficiency, unspecified (principal); T78.1XXA Other adverse food reactions, not elsewhere classified, initial encounter; D50.0 Iron deficiency anemia secondary to blood loss (chronic); R53.81 Other malaise; R76.8 Other specified abnormal immunological findings in serum
CPT/HCPCS: 36415; 82784; 83516; 86376; 86800

== ENCOUNTER → 2024-06-25 12:19 | Outpatient (CLI) | payer OTHER, SELFPAY ==
[2024-06-25 14:48] LABS: Add Manual Diff / Slide Review NO; Basophils Absolute Auto 0 /uL (0-100); Basophils Percent Auto 0.2 % (0-2); Eosinophils Absolute Auto 100 /uL (0-450); Eosinophils Percent Auto 3.5 % (2-4); Hematocrit 37.4 % (36-46); Hemoglobin 12.9 g/dL (12.0-16.0); Lymphocytes Absolute Auto 1200 /uL (1100-4500); Lymphocytes Percent Auto 34.9 % (25-40); Mean Corpuscular HGB Conc 34.4 % (30-36); Mean Corpuscular Volume 96.1 fL (80-100); Monocytes Absolute Auto 200 /uL (0-900); Neutrophils Absolute Auto 1900 /uL (1500-7000); Neutrophils Percent Auto 54.4 % (50-75); Platelet Count 211 X10^3/uL (150-400); Red Blood Cell Count 3.89 X10^6/uL (4.0-5.2); Red Cell Distribution Width 13.2 % (11.6-14.8); White Blood Cell Count 3.5 X10^3/uL (4.5-11.0)
[2024-06-25 15:16] LABS: Alanine Aminotransferase 18 IU/L (<35); Albumin 4.5 g/dL (3.5-5.0); Albumin Globulin Ratio 1.9 (1.0-2.8); Alkaline Phosphatase 52 U/L (38-126); Aspartate Aminotransferase 25 IU/L (14-36); Bilirubin Total 0.3 mg/dL (0.2-1.3); Blood Urea Nitrogen 15 mg/dL (7-17); Calcium 9.5 mg/dL (8.4-10.2); Carbon Dioxide 29 mmol/L (22-32); Chloride 103 mmol/L (98-107); Estimated Glomerular Filt Rate > 60 mL/min (>60); Globulin 2.4 g/dL (1.7-4.1); Glucose 86 mg/dL (70-100); HEMOLYSIS < 15 (0-50); Potassium 4.2 mmol/L (3.4-5.1); Sodium 138 mmol/L (137-145); Total Protein 6.9 g/dL (6.3-8.2)
[2024-06-25 15:32] LABS: Vitamin D 25 Hydroxy (D3) 37.9 ng/mL (30.0-100.0)
[2024-06-25 15:44] LABS: TSH w/ Reflex to FT4 1.63 uIU/mL (0.47-4.68)
[2024-06-26 15:36] LABS: Anti Thyroglobulin Antibody 2.2 IU/mL (0.0-0.9); Thyroid Peroxidase Antibodies 448 IU/mL (0-34)
== END ==
LOC: LAB 12:21
PROVIDERS: PCP Family Medicine; Referring Provider Family Medicine; Visit Provider Family Medicine
DX: R53.81 Other malaise (principal); R53.83 Other fatigue; E55.9 Vitamin D deficiency, unspecified; D50.0 Iron deficiency anemia secondary to blood loss (chronic); R76.8 Other specified abnormal immunological findings in serum
CPT/HCPCS: 36415; 80053; 82306; 84432; 84443; 85025; 86376; 86800

== ENCOUNTER → 2024-07-15 10:29 | Outpatient (CLI) | payer OTHER, SELFPAY ==
[2024-07-15 11:36] LABS: Cholesterol 237 mg/dL (140-199); HDL Cholesterol 94 mg/dL (40-60); LDL Cholesterol Calculated 131 mg/dL (<100); Triglycerides 60 mg/dL (35-150)
[2024-07-19 00:38] LABS: Hepatitis Be Antibody Non Reactive (Negative)
== END ==
PROVIDERS: PCP Family Medicine; Referring Provider Family Medicine; Visit Provider Family Medicine
DX: Z13.220 Encounter for screening for lipoid disorders (principal); Z11.59 Encounter for screening for other viral diseases
CPT/HCPCS: 36415; 80061; 86707

== ENCOUNTER → 2024-10-03 12:16 | Outpatient (CLI) | payer OTHER, SELFPAY ==
[2024-10-04 07:12] LABS: Thyroid Peroxidase Antibodies 311 IU/mL (0-34)
== END ==
PROVIDERS: PCP Family Medicine; Referring Provider Family Medicine; Visit Provider Family Medicine
DX: R76.8 Other specified abnormal immunological findings in serum (principal)
CPT/HCPCS: 36415; 86376

== ENCOUNTER → 2024-12-04 16:57 | Outpatient (CLI) | payer OTHER, SELFPAY ==
[2024-12-04 17:31] LABS: Appearance Urine UA CLOUDY; Bilirubin Urine UA NEGATIVE (NEGATIVE); Color Urine UA YELLOW; Glucose Urine UA NEGATIVE (Negative); Ketones Urine UA NEGATIVE (NEGATIVE); Leukocyte Esterase Urine UA TRACE (NEGATIVE); Nitrite Urine UA NEGATIVE (Negative); Occult Blood Urine UA 3+ (Negative); Protein Urine UA NEGATIVE (Negative); Urobilinogen Urine UA 0.2 E.U./dL (0.2)
[2024-12-04 17:58] LABS: RBC Urine 5-10/HPF (0-5/HPF); Urine Volume 10mL (spun); WBC Urine 5-10/HPF (0-5/HPF)
[2024-12-04 17:59] LABS: Bacteria Urine Few (2-10); Culture Indicated Urine Specimen Cultured; Squamous Epithelial Cell Urine 5-10 /HPF (0-5/HPF)
== END ==
PROVIDERS: PCP Family Medicine; Referring Provider Family Medicine; Visit Provider Family Medicine
DX: R31.9 Hematuria, unspecified (principal)
CPT/HCPCS: 81001; 87086